=== PATIENT | female | born 1950 | race Caucasian/White ===

== ENCOUNTER 2022-07-24 04:35 | Inpatient (IN) | payer MEDICARE, OTHER ==
[2022-07-24] MEDS ORDERED: methylPREDNISolone Sodium Succinate 125 MG/2 ML SDV IVPUSH ONE (05:03)
[2022-07-24] MEDS ORDERED: Albuterol/Ipratropium 3.0-0.5 MG/3 ML Neb Soln NEB ONE ×2 (05:03→05:52)
[2022-07-24] MEDS: Sodium Chloride 0.9% 10 ML Syringe FLUSH PRN ×2 (05:20→08:52)
[2022-07-24 05:59] LABS: CORONAVIRUS COVID-19 NAA NEGATIVE (NEGATIVE)
[2022-07-24] MEDS ORDERED: Iopamidol 612 MG/ML 100 ML Bottle IVPUSH ONE (08:23)
[2022-07-24] MEDS ORDERED: Iopamidol 755 Mg/ML 100 ML Bottle IVPUSH ONE (08:41)
[2022-07-24] MEDS ORDERED: Docusate Sodium 100 MG Cap PO PRN (12:57)
[2022-07-24] MEDS ORDERED: Psyllium Husk Powder Sugar Free 5.85 GM Packet PO PRN (12:58)
[2022-07-24] MEDS ORDERED: Acetaminophen 325 MG Tab PO PRN (13:00)
[2022-07-24] MEDS ORDERED: Ondansetron 4 MG/2 ML SDV IVPUSH PRN (13:06)
[2022-07-24] MEDS ORDERED: hydrALAZINE 20 MG/ML SDV IVPUSH PRN (13:07)
[2022-07-24] MEDS: Losartan 100 MG Tab PO SCH (14:01)
[2022-07-24] MEDS: Hydrochlorothiazide 25 MG Tab PO SCH (14:01)
[2022-07-24] MEDS: Acetaminophen/oxyCODONE 325-5 MG Tab PO PRN ×2 (14:01→19:50)
[2022-07-24] MEDS: Enoxaparin 40 MG/0.4 ML Syringe SUBCUT SCH (14:02)
[2022-07-24] MEDS: methylPREDNISolone Sodium Succinate 40 MG/1 ML SDV IVPUSH SCH ×3 (14:02→21:00)
[2022-07-24] MEDS: cefTRIAXone 1 GM in Sodium Chloride 0.9% 100 ML IV SCH (14:02)
[2022-07-24] MEDS: Albuterol/Ipratropium 3.0-0.5 MG/3 ML Neb Soln NEB SCH ×2 (14:05→20:19)
[2022-07-24] MEDS: Pantoprazole 40 MG Tab.CR PO SCH (17:14)
[2022-07-24] MEDS: Insulin Lispro 100 Unit/ML 3 ML KwikPen SUBCUT SCH ×3 (17:17→22:06)
[2022-07-24] MEDS: atorvaSTATin 20 MG Tab PO SCH ×2 (19:50→21:00)
[2022-07-25] MEDS: Albuterol/Ipratropium 3.0-0.5 MG/3 ML Neb Soln NEB SCH ×4 (02:30→20:28)
[2022-07-25] MEDS: Pantoprazole 40 MG Tab.CR PO SCH ×2 (06:11→17:29)
[2022-07-25] MEDS: Insulin Lispro 100 Unit/ML 3 ML KwikPen SUBCUT SCH ×7 (07:48→21:55)
[2022-07-25] MEDS: Losartan 100 MG Tab PO SCH (08:25)
[2022-07-25] MEDS: methylPREDNISolone Sodium Succinate 40 MG/1 ML SDV IVPUSH SCH ×2 (08:25→21:50)
[2022-07-25] MEDS: Hydrochlorothiazide 25 MG Tab PO SCH (08:25)
[2022-07-25] MEDS: Enoxaparin 40 MG/0.4 ML Syringe SUBCUT SCH (08:25)
[2022-07-25] MEDS: Albuterol/Ipratropium 3.0-0.5 MG/3 ML Neb Soln NEB PRN ×2 (12:32→18:04)
[2022-07-25] MEDS: cefTRIAXone 1 GM in Sodium Chloride 0.9% 100 ML IV SCH (14:11)
[2022-07-25] MEDS: atorvaSTATin 20 MG Tab PO SCH (21:49)
[2022-07-26] MEDS: Albuterol/Ipratropium 3.0-0.5 MG/3 ML Neb Soln NEB PRN (00:38)
[2022-07-26] MEDS: Albuterol/Ipratropium 3.0-0.5 MG/3 ML Neb Soln NEB SCH ×4 (04:09→20:18)
[2022-07-26] MEDS: Pantoprazole 40 MG Tab.CR PO SCH ×2 (07:18→16:59)
[2022-07-26] MEDS: Insulin Lispro 100 Unit/ML 3 ML KwikPen SUBCUT SCH ×7 (07:19→22:09)
[2022-07-26] MEDS: methylPREDNISolone Sodium Succinate 40 MG/1 ML SDV IVPUSH SCH ×2 (08:37→21:59)
[2022-07-26] MEDS: Hydrochlorothiazide 25 MG Tab PO SCH (08:37)
[2022-07-26] MEDS: Losartan 100 MG Tab PO SCH (08:37)
[2022-07-26] MEDS: Enoxaparin 40 MG/0.4 ML Syringe SUBCUT SCH (08:38)
[2022-07-26] MEDS: cefTRIAXone 1 GM in Sodium Chloride 0.9% 100 ML IV SCH (12:18)
[2022-07-26] MEDS: atorvaSTATin 20 MG Tab PO SCH (21:59)
[2022-07-27] MEDS: Albuterol/Ipratropium 3.0-0.5 MG/3 ML Neb Soln NEB PRN ×2 (00:15→12:54)
[2022-07-27] MEDS: Albuterol/Ipratropium 3.0-0.5 MG/3 ML Neb Soln NEB SCH ×2 (02:53→08:25)
[2022-07-27] MEDS: Pantoprazole 40 MG Tab.CR PO SCH (05:29)
[2022-07-27] MEDS: Insulin Lispro 100 Unit/ML 3 ML KwikPen SUBCUT SCH ×4 (08:44→11:43)
[2022-07-27] MEDS: Losartan 100 MG Tab PO SCH (08:46)
[2022-07-27] MEDS: Hydrochlorothiazide 25 MG Tab PO SCH (08:47)
[2022-07-27] MEDS: Enoxaparin 40 MG/0.4 ML Syringe SUBCUT SCH (08:47)
[2022-07-27] MEDS: methylPREDNISolone Sodium Succinate 40 MG/1 ML SDV IVPUSH SCH (08:48)
== END 2022-07-27 13:34 | disposition home or self-care (01) | DRG 189 ==
LOC: JD.ED 04:35 → JD.MS 10:27
PROVIDERS: ADMIT Internal Medicine; ATTEND Internal Medicine
DX: J96.01 Acute respiratory failure with hypoxia (principal); J44.1 Chronic obstructive pulmonary disease with (acute) exacerbation; N17.9 Acute kidney failure, unspecified; I24.8 Other forms of acute ischemic heart disease; J21.9 Acute bronchiolitis, unspecified; R09.02 Hypoxemia; E78.5 Hyperlipidemia, unspecified; I44.7 Left bundle-branch block, unspecified; E66.9 Obesity, unspecified; H54.7 Unspecified visual loss; Z20.822 Contact with and (suspected) exposure to COVID-19; F41.9 Anxiety disorder, unspecified; G89.29 Other chronic pain; E11.9 Type 2 diabetes mellitus without complications; M54.9 Dorsalgia, unspecified; I10 Essential (primary) hypertension; E78.00 Pure hypercholesterolemia, unspecified; Z79.51 Long term (current) use of inhaled steroids; K21.9 Gastro-esophageal reflux disease without esophagitis; Z88.0 Allergy status to penicillin; Z68.37 Body mass index [BMI] 37.0-37.9, adult; Z79.84 Long term (current) use of oral hypoglycemic drugs; Z79.899 Other long term (current) drug therapy; Z87.891 Personal history of nicotine dependence
CPT/HCPCS: 0241U; 36415; 71045; 71275; 80048; 80053; 82947; 83880; 84484; 85025; 93005; 94640; 94761; 96374; 97116; 97162; 97530; 99285; A9270-GY; J0696; J1650; J1815; J2920; J2930; J3490; J7620-GY; Q9967